=== PATIENT | female | born 1980 | race Caucasian/White ===

== ENCOUNTER 2016-11-19 02:26 | Emergency (ER) | payer OTHER ==
[~2016-11-19] VITALS: Ht 167.6 cm; Wt 72.6 kg
[~2016-11-19 02:26] MED LIST: FLAGYL500 MG PO; TYLENOL #3 300/1 TAB PO; VICODIN 5/500 M1 TAB PO; ZOFRAN ODT4 MG PO
--- NOTE | 2016-11-19 02:26 | NUR ---
BIBA TO ER BED 4
[2016-11-19 02:34] VITALS: BP 122/77
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
[2016-11-19] MEDS ORDERED: HYDROcodone/APAP 10/325 MG 1 TAB TAB PO ONE (03:00)
[2016-11-19] MEDS ORDERED: KETOROLAC 30 MG/ML VIAL IM ONE (04:30)
[2016-11-19] MEDS ORDERED: NEOMYCIN/POLYMYXIN/BACITRACIN 0.9 GM/1 PKT TP ONE (04:32)
[2016-11-19 05:25] VITALS: BP 124/81
--- NOTE | 2016-11-19 05:25 | NUR ---
Patient discharged with v/s stable. Written and verbal after care instructions given and explained. Patient alert, oriented and verbalized understanding of instructions. Ambulatory with steady gait. All questions addressed prior to discharge. ID band removed. Patient advised to follow up with PMD. Rx of MOTRIN AND NORCO given. Patient educated on indication of medication including possible reaction and side effects. Opportunity to ask questions provided and answered.
[2016-11-19] MEDS ORDERED: BACITRACIN ZINC/POLYMYXIN B OINT 30 GM TUBE TP SCH (09:00)
== END 2016-11-19 05:25 | disposition home or self-care (01) ==
LOC: MED 02:26
DX: S01.01XA Laceration without foreign body of scalp, initial encounter (principal); S00.83XA Contusion of other part of head, initial encounter; K21.9 Gastro-esophageal reflux disease without esophagitis; Y04.8XXA Assault by other bodily force, initial encounter; Y93.89 Activity, other specified; Y92.89 Other specified places as the place of occurrence of the external cause; Y99.8 Other external cause status
CPT/HCPCS: 12011; 70450; 70486; 81002; 81025; 96372; 99284; J1885

== ENCOUNTER 2016-11-25 19:58 | Emergency (ER) | payer OTHER ==
[~2016-11-25] VITALS: Ht 167.6 cm; Wt 72.6 kg
[2016-11-25 20:16] VITALS: BP 160/95
--- NOTE | 2016-11-26 00:04 | NUR ---
TO ER BED 7
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
[2016-11-26] MEDS ORDERED: HYDROcodone/APAP 10/325 MG 1 TAB TAB PO ONE (00:45)
--- NOTE | 2016-11-26 02:46 | NUR ---
PT RESTING IN BED. NO SOB NOTE AT THIS TIME. WILL CONTINUE TO MONITOR.
[2016-11-26] MEDS ORDERED: ONDANSETRON 4 MG/2 ML VIAL IVP ONE (03:05)
[2016-11-26] MEDS ORDERED: MORPHINE SULFATE 2 MG/ML SYR IVP ONE (03:05)
[2016-11-26 04:08] VITALS: BP 136/78
--- NOTE | 2016-11-26 04:09 | NUR ---
Patient discharged with v/s stable. Written and verbal after care instructions given and explained. Patient alert, oriented and verbalized understanding of instructions. Ambulatory with steady gait. All questions addressed prior to discharge. ID band removed. Patient advised to follow up with PMD. Rx of NORCO AND MOTRIN given. Patient educated on indication of medication including possible reaction and side effects. Opportunity to ask questions provided and answered.
== END 2016-11-26 04:08 | disposition home or self-care (01) ==
LOC: MED 19:58
DX: S30.0XXA Contusion of lower back and pelvis, initial encounter (principal); S39.91XA Unspecified injury of abdomen, initial encounter; K21.9 Gastro-esophageal reflux disease without esophagitis; Y08.89XA Assault by other specified means, initial encounter; Y93.89 Activity, other specified; Y92.89 Other specified places as the place of occurrence of the external cause; Y99.8 Other external cause status
CPT/HCPCS: 36415; 71010; 74177; 80053; 81001; 81025; 83690; 85025; 96374; 96375; 99285; J2270; J2405; Q9967

== ENCOUNTER 2018-02-18 07:03 | Emergency (ER) | payer OTHER ==
[~2018-02-18] VITALS: Ht 167.6 cm; Wt 74.4 kg
[2018-02-18 07:07] VITALS: BP 137/82
--- NOTE | 2018-02-18 07:11 | NUR ---
Pt taken to bed 4.
--- NOTE | 2018-02-18 07:12 | NUR ---
REPORT GIVEN TO PEDRO LUIS PEREZ.
--- NOTE | 2018-02-18 07:18 | NUR ---
PT. CAME INTO THE ED W C/O ABD PAIN X 2 DAYS AND N/V. PT. STATES " 2 DAYS AGO MY LOWER ABD STARTED HURTING AND I HAVE BEEN VERY NAUSEOUS I VOMITED ONCE TODAY ". PT. DENIES ANY FEVERS, DENIES ANY DIAHRRHEA, DENIES ANY CHEST PAIN, DENIES SOB. PT. IS AAOX4, RR EVEN AND UNLABORED. ABD SOFT AND FLAT. LMP: 02/01/18. ER MD NOTIFIED. SAFETY PRECAUTIONS INITIATED. WILL CONTINUE TO MONITOR.
[2018-02-18] MEDS ORDERED: ACETAMINOPHEN EXTRA STRENGTH 500 MG TAB PO ONE (07:35)
--- NOTE | 2018-02-18 08:03 | NUR ---
ultrasound at bedside at this time.
[2018-02-18 08:09] LABS: BASOPHILS % (AUTO) 0.2 % (0.0-2.0); EOSINOPHILS % (AUTO) 0.6 % (0.0-4.0); HEMATOCRIT 32.7 % (36-48); HEMOGLOBIN 11.1 g/dL (12.0-16.0); LYMPHOCYTES # (AUTO) 1.3 K/uL (2.5-16.5); MEAN CORPUSCULAR HEMOGLOBIN 30 pg (27-31); MEAN CORPUSCULAR HGB CONC 34 g/dL (33-37); MEAN CORPUSCULAR VOLUME 88.9 fL (80-94); MONOCYTES # (AUTO) 0.3 K/uL (0.8-1.0); MONOCYTES % (AUTO) 4.3 % (1.7-9.3); NEUTROPHILS # (AUTO) 6.2 K/uL (1.8-7.7); NEUTROPHILS % (AUTO) 77.9 % (42.2-75.2); PLATELET COUNT (AUTO) 249 K/uL (140-450); RED BLOOD CELL COUNT(AUTO) 3.68 MIL/uL (4.20-5.40); RED CELL DISTRIBUTION WIDTH 13.3 % (11.6-13.7); WHITE BLOOD COUNT (AUTO) 7.9 K/uL (4.8-10.8)
[2018-02-18 08:22] LABS: ANION GAP 13.8 (8-16); CARBON DIOXIDE 23.9 mmol/L (21-32); CREATININE 0.6 mg/dL (0.6-1.3); POTASSIUM 3.7 mmol/L (3.5-5.1)
[2018-02-18 08:35] LABS: ALBUMIN 2.7 g/dL (3.4-5.0); TOTAL BILIRUBIN 0.2 mg/dL (0.0-1.0)
[2018-02-18 08:41] LABS: APPEARANCE,URINE HAZY (CLEAR); BILIRUBIN,URINE NEGATIVE (NEGATIVE); BLOOD, URINE TRACE-I (NEGATIVE); COLOR,URINE YELLOW (YELLOW); LEUKOCYTE ESTERASE ,URINE 2+ (NEGATIVE); NITRITE, URINE NEGATIVE (NEGATIVE); PH,URINE 6.5 (5.0-9.0); UGLUCOSE TRACE (NEGATIVE)
[2018-02-18 08:49] LABS: RBC,URINE 0-5 (RARE) /HPF (0-5)
--- NOTE | 2018-02-18 09:23 | NUR ---
PT. RESTING COMFORTABLY IN BED , PT. AAOX4. WILL CONTINUE TO MONITOR.
[2018-02-18 10:00] VITALS: BP 130/80
--- NOTE | 2018-02-18 10:00 | NUR ---
Patient discharged with v/s stable. Written and verbal after care instructions given and explained. Patient alert, oriented and verbalized understanding of instructions. Ambulatory with steady gait. All questions addressed prior to discharge. ID band removed. Patient advised to follow up with PMD. Rx of NITROFURANTOIN AND VITAMINS given. Patient educated on indication of medication including possible reaction and side effects. Opportunity to ask questions provided and answered.
== END 2018-02-18 10:00 | disposition home or self-care (01) ==
LOC: MED 07:03
DX: O23.42 Unspecified infection of urinary tract in pregnancy, second trimester (principal); O09.522 Supervision of elderly multigravida, second trimester; Z3A.25 25 weeks gestation of pregnancy; K21.9 Gastro-esophageal reflux disease without esophagitis
CPT/HCPCS: 36415; 76801; 80053; 81001; 81025; 82150; 83690; 84702; 85025; 86900; 86901; 87086; 99285

== ENCOUNTER 2018-05-07 03:15 | Emergency (ER) | payer OTHER ==
[~2018-05-07] VITALS: Ht 170.2 cm; Wt 76.2 kg
[2018-05-07 03:19] VITALS: BP 122/75
[2018-05-07 03:31] VITALS: BP 117/82
== END 2018-05-07 03:31 | disposition home or self-care (01) ==
LOC: MED 03:15
DX: O99.513 Diseases of the respiratory system complicating pregnancy, third trimester (principal); J06.9 Acute upper respiratory infection, unspecified; Z3A.32 32 weeks gestation of pregnancy; K21.9 Gastro-esophageal reflux disease without esophagitis
CPT/HCPCS: 99281

== ENCOUNTER 2018-12-20 17:20 | Inpatient (IN) | payer OTHER ==
[~2018-12-20] VITALS: Ht 170.2 cm; Wt 67.1 kg
[2018-12-20] MEDS ORDERED: OXYTOCIN 20 UNITS in LACTATED RINGERS 1,000 ML IV SCH (17:55)
[2018-12-20 18:00] VITALS: BP 122/70
[2018-12-20] MEDS ORDERED: OXYTOCIN 20 UNITS/LR PREMIX 1,000 ML IV ONE (18:18)
[2018-12-20 19:07] LABS: ALBUMIN 2.7 g/dL (3.4-5.0); ANION GAP 14.3 (8-16); CARBON DIOXIDE 23.1 mmol/L (21-32); CREATININE 0.4 mg/dL (0.6-1.3); POTASSIUM 3.4 mmol/L (3.5-5.1); TOTAL BILIRUBIN 0.2 mg/dL (0.0-1.0)
[2018-12-20] MEDS ORDERED: IBUPROFEN 600 MG TAB ONE (19:18)
[2018-12-20 19:42] LABS: APPEARANCE,URINE CLEAR (CLEAR); BILIRUBIN,URINE NEGATIVE (NEGATIVE); BLOOD, URINE NEGATIVE (NEGATIVE); COLOR,URINE YELLOW (YELLOW); LEUKOCYTE ESTERASE ,URINE NEGATIVE (NEGATIVE); NITRITE, URINE NEGATIVE (NEGATIVE); UGLUCOSE NEGATIVE (NEGATIVE)
[2018-12-20 19:48] LABS: BARBITURATE, URINE NEG. ng/ml (NEG <=200); BENZODIAZEPINE, URINE NEG. ng/mL (NEG <=200); CANNABINOID, URINE POS. ng/mL (NEG <=50); COCAINE, URINE NEG. ng/mL (NEG <=300); OPIATE, URINE NEG. ng/mL (NEG <=2000); PHENCYCLIDINE SCREEN,URINE NEG. ng/mL (NEG <=25)
[2018-12-21] MEDS: IBUPROFEN 600 MG TAB PO PRN ×2 (05:58→14:00)
[2018-12-21 07:24] LABS: BASOPHILS % (AUTO) 0.2 % (0.0-2.0); EOSINOPHILS # (AUTO) 0.1 K/uL (0-0.4); HEMATOCRIT 32.1 % (36-48); LYMPHOCYTES # (AUTO) 1.4 K/uL (2.5-16.5); LYMPHOCYTES % (AUTO) 21.1 % (20.5-51.1); MEAN CORPUSCULAR HEMOGLOBIN 31 pg (27-31); MEAN CORPUSCULAR HGB CONC 34 g/dL (33-37); MEAN CORPUSCULAR VOLUME 90.2 fL (80-94); MONOCYTES # (AUTO) 0.4 K/uL (0.8-1.0); MONOCYTES % (AUTO) 5.3 % (1.7-9.3); NEUTROPHILS # (AUTO) 4.9 K/uL (1.8-7.7); NEUTROPHILS % (AUTO) 72.4 % (42.2-75.2); PLATELET COUNT (AUTO) 239 K/uL (140-450); RED BLOOD CELL COUNT(AUTO) 3.57 MIL/uL (4.20-5.40); RED CELL DISTRIBUTION WIDTH 13.8 % (11.6-13.7); WHITE BLOOD COUNT (AUTO) 6.8 K/uL (4.8-10.8)
[2018-12-24 09:27] LABS: HEPATITIS B SURFACE ANTIGEN Negative (Negative)
== END 2018-12-21 14:15 | disposition home or self-care (01) | DRG 560 ==
LOC: MLD 17:20 → MFCC 21:00
PROVIDERS: ADMIT Obstetrics & Gynecology; ATTEND Obstetrics & Gynecology
PROC: 10E0XZZ Delivery of Products of Conception, External Approach (ICD-10-PCS; principal; 2018-12-20)
DX: O60.10X0 Preterm labor with preterm delivery, unspecified trimester, not applicable or unspecified (principal); O99.89 Other specified diseases and conditions complicating pregnancy, childbirth and the puerperium; R82.5 Elevated urine levels of drugs, medicaments and biological substances; Z37.0 Single live birth
CPT/HCPCS: 36415; 80053; 80305; 81003; 85025; 86592; 86762; 86886; 86900; 86901; 87086; 87340; C1758; J2590; J7120

== ENCOUNTER 2019-03-29 13:09 | Emergency (ER) | payer OTHER ==
[~2019-03-29] VITALS: Ht 170.2 cm; Wt 62.6 kg
[2019-03-29 13:13] VITALS: BP 111/67
--- NOTE | 2019-03-29 13:22 | NUR ---
Patient ambulated to bed 3. RN evaluating patient at bedside.
--- NOTE | 2019-03-29 13:32 | NUR ---
Dr. Elise evaluating patient at bedside.
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
--- NOTE | 2019-03-29 13:59 | NUR ---
Patient returned from CT scan. RN re-evaluating patient at bedside.
[2019-03-29 14:25] VITALS: BP 111/67
--- NOTE | 2019-03-29 14:25 | NUR ---
Patient discharged with v/s stable. Written and verbal after care instructions given and explained. Patient alert, oriented and verbalized understanding of instructions. Ambulatory with steady gait. All questions addressed prior to discharge. ID band removed. Patient advised to follow up with PMD. Rx of MOTRIN 600MG TAB given. Patient educated on indication of medication including possible reaction and side effects. Opportunity to ask questions provided and answered.
== END 2019-03-29 14:25 | disposition home or self-care (01) ==
LOC: MED 13:09
DX: S00.12XA Contusion of left eyelid and periocular area, initial encounter (principal); H11.32 Conjunctival hemorrhage, left eye; K21.9 Gastro-esophageal reflux disease without esophagitis; Y04.8XXA Assault by other bodily force, initial encounter; Y93.89 Activity, other specified; Y92.89 Other specified places as the place of occurrence of the external cause; Y99.8 Other external cause status
CPT/HCPCS: 70480; 99284

== ENCOUNTER 2019-07-03 16:30 | Emergency (ER) | payer OTHER ==
[~2019-07-03] VITALS: Ht 170.2 cm; Wt 65.8 kg
[2019-07-03 16:32] VITALS: BP 130/83
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
--- NOTE | 2019-07-03 16:45 | NUR ---
EPatient being evaluated by Dr. Bruce at bedside.
[2019-07-03] MEDS ORDERED: TETRACAINE HCL/PF 0.5% OPTH 4 ML BTL OP ONE (16:50)
[2019-07-03] MEDS ORDERED: ACETAMINOPHEN 325 MG TAB PO ONE (16:50)
--- NOTE | 2019-07-03 16:52 | NUR ---
Maira stapleton in [facility] - 07/03/19 at 1657 by [email or web address] PT AMB TO BED 11 AT THIS TIME.
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
[2019-07-03] MEDS ORDERED: FLUORESCEIN OPTH STRIP 1 MG OP ONE (16:55)
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
--- NOTE | 2019-07-03 17:05 | NUR ---
Dr. Bruce aware of patient not wanting to go to x-ray and speaking with patient.
--- NOTE | 2019-07-03 17:20 | NUR ---
PT DISCHARGED FROM FACILITY. PATIENT MEDICALLY CLEARED, OKAY TO BOOK AND RELEASED IN CUSTODY TO OFFICER JORGE IN STABLE CONDITION. ORIGINAL PRE-BOOK FORM AND COPY GIVEN TO OFFICER JORGE.
== END 2019-07-03 17:20 ==
LOC: MED 16:30
DX: S02.2XXA Fracture of nasal bones, initial encounter for closed fracture (principal); H10.219 Acute toxic conjunctivitis, unspecified eye; E11.9 Type 2 diabetes mellitus without complications; K21.9 Gastro-esophageal reflux disease without esophagitis; I10 Essential (primary) hypertension; Z98.890 Other specified postprocedural states; Y04.0XXA Assault by unarmed brawl or fight, initial encounter; Y93.89 Activity, other specified; Y92.830 Public park as the place of occurrence of the external cause; Y99.8 Other external cause status
CPT/HCPCS: 99283

== ENCOUNTER 2019-08-16 22:51 | Emergency (ER) | payer OTHER ==
[~2019-08-16] VITALS: Ht 170.2 cm; Wt 68.0 kg
[2019-08-16 23:07] VITALS: BP 117/80
--- NOTE | 2019-08-16 23:10 | NUR ---
to lobby a/w bed ambulatory
--- NOTE | 2019-08-17 00:25 | NUR ---
PT AMBULATED TO BED 2.
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
[2019-08-17] MEDS ORDERED: ACETAMINOPHEN 325 MG TAB PO ONE (02:05)
--- NOTE | 2019-08-17 02:38 | NUR ---
ULTRASOUND AT BEDSIDE.
[2019-08-17 03:03] VITALS: BP 117/80
--- NOTE | 2019-08-17 03:03 | NUR ---
Patient discharged with v/s stable. Written and verbal after care instructions given and explained. Patient alert, oriented and verbalized understanding of instructions. Ambulatory with steady gait. All questions addressed prior to discharge. ID band removed. Patient advised to follow up with PMD. Rx of TYLENOL EXTRA STRENGTH given. Patient educated on indication of medication including possible reaction and side effects. Opportunity to ask questions provided and answered. Addendum: 08/17/19 at 0314 by SCARLETT DISCHARGED BY DR. CHUN.
== END 2019-08-17 03:03 | disposition home or self-care (01) ==
LOC: MED 22:51
DX: O9A.211 Injury, poisoning and certain other consequences of external causes complicating pregnancy, first trimester (principal); S93.491A Sprain of other ligament of right ankle, initial encounter; E11.9 Type 2 diabetes mellitus without complications; K21.9 Gastro-esophageal reflux disease without esophagitis; I10 Essential (primary) hypertension; Z3A.11 11 weeks gestation of pregnancy; W18.39XA Other fall on same level, initial encounter; Y93.89 Activity, other specified; Y92.89 Other specified places as the place of occurrence of the external cause; Y99.8 Other external cause status
CPT/HCPCS: 76805; 99284; Q0092

== ENCOUNTER 2022-09-26 13:33 | Emergency (ER) | payer OTHER ==
[~2022-09-26] VITALS: Ht 170.2 cm; Wt 77.6 kg
[2022-09-26 13:56] VITALS: BP 118/60
--- NOTE | 2022-09-26 15:51 | NUR ---
BIB SELF C/O NOSE, LEFT CHIN PAIN& BRUISE , RIGHT HIP PAIN S/P FALL X LAST NIGHT. LOC APPROX 2 MINS.
[2022-09-26] MEDS ORDERED: BACITRACIN OINT 500 UNITS/GM PKT TP ONE (16:25)
[2022-09-26] MEDS ORDERED: NAPR-1704 PO (16:30)
[2022-09-26] MEDS ORDERED: BACI-105 TP (16:30)
[2022-09-26 16:35] VITALS: BP 118/60
--- NOTE | 2022-09-26 16:36 | NUR ---
Patient discharged with v/s stable. Written and verbal after care instructions given and explained. Patient alert, oriented and verbalized understanding of instructions. Ambulatory with steady gait. All questions addressed prior to discharge. ID band removed. Patient advised to follow up with PMD. Rx of naproxen, bacitracin (sent) given. Patient educated on indication of medication including possible reaction and side effects. Opportunity to ask questions provided and answered.
== END 2022-09-26 16:36 | disposition home or self-care (01) ==
LOC: MED 13:33
DX: S00.31XA Abrasion of nose, initial encounter (principal); S00.81XA Abrasion of other part of head, initial encounter; K21.9 Gastro-esophageal reflux disease without esophagitis; I10 Essential (primary) hypertension; E11.9 Type 2 diabetes mellitus without complications; Z79.4 Long term (current) use of insulin; Z79.899 Other long term (current) drug therapy; W18.30XA Fall on same level, unspecified, initial encounter; Y93.89 Activity, other specified; Y92.89 Other specified places as the place of occurrence of the external cause; Y99.8 Other external cause status
CPT/HCPCS: 81025; 99282